=== PATIENT | male | born 1940 | race Caucasian/White ===

== ENCOUNTER 2019-03-03 15:27 | Inpatient (IN) | payer MEDICARE, OTHER ==
[~2019-03-03] VITALS: Ht 175.3 cm; Wt 109.2 kg
[~2019-03-03 15:27] MED LIST: ETOMIDATE 40 MG/20 ML ONE; MIDAZOLAM 1 MG/ML, 5ML ONE; PROPOFOL 10 MG/ML, 100ML IV ONE; SUCCINYLCHOLINE 20 MG/ML, 10ML ONE; VECURONIUM 10 MG ONE
[2019-03-03] MEDS ORDERED: PLEASE ENTER HEIGHT AND WEIGHT MC SCH (16:00)
[2019-03-03] MEDS ORDERED: PLEASE ENTER ALLERGIES MC SCH (16:00)
[2019-03-03] MEDS ORDERED: PIPERACILLIN/TAZO/PMX 3.375GM 50 ML IVPB ONE (16:00)
[2019-03-03] MEDS ORDERED: PIPERACILLIN/TAZO/PMX 3.375GM 50 ML ONE (16:00)
[2019-03-03] MEDS ORDERED: SODIUM CHLORIDE 0.9% 1,000ML IVBOLUS ONE ×3 (16:00→17:00)
[2019-03-03 16:17] LABS: TROPONIN I 0.705 ng/mL (0.000-0.045)
[2019-03-03 16:25] LABS: RAPID INFLUENZA A Negative (Negative); RAPID INFLUENZA B Negative (Negative)
[2019-03-03] MEDS ORDERED: PROPOFOL 100 ML IV PRN ×2 (16:28→18:29)
[2019-03-03] MEDS ORDERED: ETOMIDATE 20 MG/10 ML IV ONE (16:30)
[2019-03-03] MEDS ORDERED: SUCCINYLCHOLINE 20 MG/ML, 10ML IVPush ONE (16:30)
[2019-03-03] MEDS ORDERED: MIDAZOLAM 1 MG/ML, 2ML IVPush ONE ×2 (16:30→19:00)
[2019-03-03] MEDS ORDERED: SODIUM CHLORIDE 0.9% 1,000 ML IV SCH (16:57)
[2019-03-03] MEDS ORDERED: NITROGLYCERIN 0.4 MG/SPRAY SL PRN (17:00)
[2019-03-03] MEDS ORDERED: ONDANSETRON 2MG/ML, 2ML IVPush PRN (17:00)
[2019-03-03] MEDS ORDERED: DEXTROSE 4 GM TAB.CHEW PO PRN (17:00)
[2019-03-03] MEDS ORDERED: NOREPINEPHRINE 4 MG in SODIUM CHLORIDE 0.9% 246 ML IV PRN (17:00)
[2019-03-03] MEDS ORDERED: POLYETHYLENE GLYCOL 17 GM PACKET PO PRN (17:00)
[2019-03-03] MEDS ORDERED: DEXTROSE 50%, 50ML SYRINGE IVPush PRN (17:00)
[2019-03-03] MEDS ORDERED: GLUCAGON 1 MG IM PRN (17:00)
[2019-03-03] MEDS ORDERED: NITROGLYCERIN 0.4 MG BOTTLE (25 TABS) SL PRN (17:00)
[2019-03-03] MEDS ORDERED: ACETAMINOPHEN 325 MG TABLET PO PRN (17:00)
[2019-03-03 17:25] LABS: MEAN CORPUSCULAR HEMOGLOBIN 29.9 pg (27.5-34.5); MEAN CORPUSCULAR HGB CONC 32.6 g/dL (33.2-36.2); MEAN CORPUSCULAR VOLUME 91.5 fL (81-97); MEAN PLATELET VOLUME 8.9 fL (7.4-10.4); PLATELET COUNT 189 x10^3/uL (130-400); RED BLOOD COUNT 4.61 x10^6/uL (4.38-5.82); RED CELL DISTRIBUTION WIDTH 14.3 % (9.4-14.8)
[2019-03-03 17:28] LABS: ALBUMIN 2.8 g/dL (3.4-5.0); ANION GAP 7 mmol/L (5-15); CALCIUM 8.4 mg/dL (8.5-10.1); CHLORIDE 118 mmol/L (98-107)
--- NOTE | 2019-03-03 17:29 | NUR ---
LATE ENTRY 1520, PT ARRIVES VIA [facility]. RPT REC'D FROM FLIGHT RN. PT TRANSFERED TO ED AN[facility] AND DR KENNEDY AT BEDSIDE. RT PLACED PT ON OPTI-FLOW. PT ASSESSMENT AND POC REVIEWED WITH PT. ER MD DISCUSSED POSSIBLE NEED FOR INTUBATION WITH PT. PT VERBALIES UNDERSTNADING. VSS AT THIS TIME ALTHOUGH PT RR 28-34. LABS DRAWN, EKG COMPLETED. PT REQUESTED THIS RN TO CALL HIS DAUGHTER EDGAR AND ALSO GAVE VERBAL CONSENT TO DISCUSS HIS HOSPITAL COURSE WITH EDGAR AND HIS SON KAI.
[2019-03-03] MEDS ORDERED: DOXYCYCLINE 100MG TABLET PO ONE (17:30)
[2019-03-03] MEDS ORDERED: VANCOMYCIN PER PHARMACY MC PRN (17:30)
[2019-03-03] MEDS ORDERED: FUROSEMIDE 20 MG/2 ML IV SCH (17:30)
[2019-03-03] MEDS ORDERED: DIAZEPAM 5 MG TABLET PO SCH (17:30)
[2019-03-03] MEDS ORDERED: PIPERACILLIN/TAZO/PMX 2.25GM 50 ML IV SCH (17:30)
[2019-03-03 17:33] LABS: ALANINE AMINOTRANSFERASE 26 U/L (12-78); ALKALINE PHOSPHATASE 58 U/L (45-117); CREATININE 2.88 mg/dL (0.7-1.3); TOTAL PROTEIN 6.9 g/dL (6.4-8.2)
--- NOTE | 2019-03-03 17:35 | NUR ---
LATE ENTRY 1700, PTS SON KAI PH: [phone] CALLED. SON LIVES IN [place]. SON UPDATED RE: FATHERS INTUBATION AND ASSESSMENT. QUESTIONS ANSWERED.
[2019-03-03 17:45] LABS: INTERNATIONAL NORMALIZED RATIO 1.19 (0.93-1.1); PROTHROMBIN TIME 12.4 Seconds (9.6-11.5)
[2019-03-03] MEDS ORDERED: HYDROmorphone 1 MG/ML, 1ML VIAL ONE (17:49)
[2019-03-03] MEDS ORDERED: MIDAZOLAM 1 MG/ML, 2ML ONE ×2 (17:49→17:51)
[2019-03-03] MEDS ORDERED: SODIUM BICARBONATE 8.4% 150 MEQ in DEXTROSE 5% 1,000 ML IV SCH (18:00)
[2019-03-03 18:07] LABS: HCT (SEDRATE) 41.5 % (39.2-51.8)
[2019-03-03 18:27] LABS: MD YES
[2019-03-03 18:29] LABS: LYMPH#(MANUAL) 1.09 x10^3/uL (1-3.4); LYMPHS% (MANUAL) 4 % (22-44); MONOS#(MANUAL) 1.37 x10^3/uL (0.3-2.7); MONOS% (MANUAL) 5 % (2-9); SEG#(MANUAL) 24.84 x10^3/uL (1.8-6.8); SEGS% (MANUAL) 91 % (42-75)
[2019-03-03 18:30] LABS: ANISOCYTOSIS 1+; POLYCHROMASIA 1+
[2019-03-03] MEDS ORDERED: PHARMACY MAY ADJ FOR RENAL FX MC SCH (18:30)
[2019-03-03] MEDS ORDERED: LIDOCAINE-MPF 1%, 2ML ENDO PRN (18:30)
[2019-03-03] MEDS ORDERED: PHARMACOKINETIC CONSULTATION MC ONE (18:30)
[2019-03-03] MEDS ORDERED: THIAMINE 100 MG in SODIUM CHLORIDE 0.9% 50 ML IV SCH (18:30)
[2019-03-03] MEDS ORDERED: PHARMACOKINETIC MONITORING MC PRN (18:30)
[2019-03-03] MEDS: DIAZEPAM 5 MG/ML, 2ML IV SCH (18:30)
[2019-03-03 18:31] LABS: <PLATELET ESTIMATE> ADEQUATE; <PLT MORPHOLOGY> NORMAL PLT MORPH
--- NOTE | 2019-03-03 18:35 | NUR ---
DAUGHTER EDGAR BUCHANAN [phone]
[2019-03-03] MEDS: FENTANYL PF 100 MCG/2ML IVPush PRN (19:24)
[2019-03-03] MEDS: NOREPINEPHRINE 4 MG in SODIUM CHLORIDE 0.9% 246 ML IV PRN (19:27)
[2019-03-03] MEDS: DOXYCYCLINE 100 MG in DEXTROSE 5% 250 ML IV SCH (19:27)
[2019-03-03] MEDS: VANCOMYCIN 2,000 MG in SODIUM CHLORIDE 0.9% 500 ML IV SCH (19:27)
[2019-03-03] MEDS: SODIUM CHLORIDE FLUSH 10ML SYR IVF SCH (19:33)
[2019-03-03] MEDS: ATORVASTATIN 40 MG TABLET PO SCH (19:44)
[2019-03-03] MEDS ORDERED: VASOPRESSIN 100 UNIT in SODIUM CHLORIDE 0.9% 495 ML IV PRN (20:00)
[2019-03-03] MEDS ORDERED: PHENYLEPHRINE 20 MG in SODIUM CHLORIDE 0.9% 248 ML IV PRN (20:00)
[2019-03-03] MEDS: MIDAZOLAM HCL 25 MG in SODIUM CHLORIDE 0.9% 245 ML IV PRN (20:08)
[2019-03-03] MEDS ORDERED: FENTANYL PF 2,500 MCG in SODIUM CHLORIDE 0.9% 200 ML IV PRN (20:30)
[2019-03-03] MEDS ORDERED: VECURONIUM 50 MG in SODIUM CHLORIDE 0.9% 250 ML IV PRN (20:30)
[2019-03-03 21:04] LABS: CULTURE INDICATED? YES; MICROSCOPIC INDICATED
[2019-03-03] MEDS ORDERED: HEPARIN 5,000 UNITS/ML, 1ML ONE (21:28)
[2019-03-03] MEDS ORDERED: HEPARIN 25,000 UNITS/500ML PMX 500 ML ONE (21:28)
[2019-03-03] MEDS: INSULIN LISPRO 100 UNITS/ML, PEN SQ-INSULIN SCH (21:37)
[2019-03-03] MEDS: HEPARIN 25,000 UNITS/500ML PMX 500 ML IV PRN (21:43)
[2019-03-03] MEDS: PIPERACILLIN/TAZO/PMX 2.25GM 50 ML IV SCH (23:24)
[2019-03-04] MEDS ORDERED: HEPARIN 5,000 UNITS/ML, 1ML IV ONE
[2019-03-04 00:15] VITALS: BP 106/56
[2019-03-04] MEDS: DIAZEPAM 5 MG/ML, 2ML IV SCH ×3 (00:27→18:36)
[2019-03-04] MEDS: MIDAZOLAM HCL 25 MG in SODIUM CHLORIDE 0.9% 245 ML IV PRN ×3 (00:58→23:16)
[2019-03-04] MEDS: SODIUM BICARBONATE 8.4% 150 MEQ in DEXTROSE 5% 1,000 ML IV SCH ×2 (02:07→10:01)
[2019-03-04 04:20] LABS: MEAN CORPUSCULAR HEMOGLOBIN 30.1 pg (27.5-34.5); MEAN CORPUSCULAR HGB CONC 32.7 g/dL (33.2-36.2); MEAN PLATELET VOLUME 8.7 fL (7.4-10.4); PLATELET COUNT 158 x10^3/uL (130-400); RED CELL DISTRIBUTION WIDTH 14.1 % (9.4-14.8)
[2019-03-04 04:34] LABS: ANION GAP 6 mmol/L (5-15); CALCIUM 7.2 mg/dL (8.5-10.1); CHLORIDE 113 mmol/L (98-107); CREATININE 3.33 mg/dL (0.7-1.3)
[2019-03-04 04:37] LABS: CHOL/HDL RATIO 3.8; CHOLESTEROL, TOTAL 129 mg/dL (140-239); HDL CHOL % 26 % (26-37); HDL CHOLESTEROL (DIRECT) 34 mg/dL (40-60); LDL CHOLESTEROL,CALCULATED 71 mg/dL (54-169); LDL/HDL RATIO 2.1 (0.5-3.0); TRIGLYCERIDES 119 mg/dL (50-200); VLDL CHOLESTEROL 24 mg/dL (0-25)
[2019-03-04] MEDS: HEPARIN 5,000 UNITS/ML, 1ML IV PRN ×2 (04:40→18:29)
[2019-03-04 04:56] LABS: BASOPHILS # (AUTO) 0.01 x10^3/uL (0-0.1); BASOPHILS % (AUTO) 0 % (0-1); EOSINOPHILS % (AUTO) 0 % (1-7); LYMPHOCYTES # (AUTO) 0.44 x10^3/uL (1-3.4); LYMPHOCYTES % (AUTO) 2 % (22-44); MD SCAN; MONOCYTES # (AUTO) 0.62 x10^3/uL (0.2-0.8); MONOCYTES % (AUTO) 3 % (2-9); NEUTROPHILS # (AUTO) 23.63 x10^3/uL (1.8-6.8); NEUTROPHILS % (AUTO) 96 % (42-75)
[2019-03-04] MEDS ORDERED: ASPIRIN 325 MG TABLET EC PO SCH (06:00)
[2019-03-04] MEDS: PIPERACILLIN/TAZO/PMX 2.25GM 50 ML IV SCH ×3 (07:42→21:42)
[2019-03-04] MEDS: DOXYCYCLINE 100 MG in DEXTROSE 5% 250 ML IV SCH ×2 (07:42→19:36)
[2019-03-04] MEDS: INSULIN LISPRO 100 UNITS/ML, PEN SQ-INSULIN SCH ×4 (09:02→19:51)
[2019-03-04] MEDS: FAMOTIDINE 20 MG/2 ML IVPush SCH (09:04)
[2019-03-04] MEDS: SENNA/DOCUSATE TABLET PO SCH (09:04)
[2019-03-04] MEDS: SODIUM CHLORIDE FLUSH 10ML SYR IVF SCH ×2 (09:18→19:36)
[2019-03-04] MEDS ORDERED: ASPIRIN 81 MG TABLET CHEW PO ONE (10:00)
--- NOTE | 2019-03-04 11:56 | NUR ---
TF goal recs: Vital HP @ 75 ml/hour on propofol and 80 ml/hour off propofol
[2019-03-04] MEDS ORDERED: SODIUM CHLORIDE 0.9%, 250ML IVBOLUS ONE (12:30)
[2019-03-04] MEDS ORDERED: SODIUM CHLORIDE 0.9% 1,000 ML IV SCH (16:57)
[2019-03-04] MEDS ORDERED: SODIUM BICARBONATE 8.4% 150 MEQ in DEXTROSE 5% 1,000 ML IV SCH (18:00)
[2019-03-04] MEDS: VANCOMYCIN 2,000 MG in SODIUM CHLORIDE 0.9% 500 ML IV SCH (18:35)
[2019-03-04] MEDS: THIAMINE 200 MG in SODIUM CHLORIDE 0.9% 50 ML IV SCH (18:36)
[2019-03-04] MEDS: ATORVASTATIN 40 MG TABLET PO SCH (19:51)
[2019-03-04] MEDS: HEPARIN 25,000 UNITS/500ML PMX 500 ML IV PRN (19:56)
[2019-03-04] MEDS: NOREPINEPHRINE 4 MG in SODIUM CHLORIDE 0.9% 246 ML IV PRN (21:17)
[2019-03-05] MEDS: HEPARIN 5,000 UNITS/ML, 1ML IV PRN (00:59)
[2019-03-05] MEDS: DIAZEPAM 5 MG/ML, 2ML IV SCH (02:30)
[2019-03-05] MEDS: PIPERACILLIN/TAZO/PMX 2.25GM 50 ML IV SCH (04:14)
[2019-03-05] MEDS ORDERED: FILTER 0.22 MICRON IV PRN (04:30)
[2019-03-05] MEDS ORDERED: AMIODARONE 900 MG in DEXTROSE 5% 482 ML IV PRN (04:30)
[2019-03-05] MEDS ORDERED: AMIODARONE 150 MG in DEXTROSE 5% 100 ML IV ONE (04:30)
[2019-03-05 04:40] LABS: BASOPHILS # (AUTO) 0.01 x10^3/uL (0-0.1); BASOPHILS % (AUTO) 0 % (0-1); EOSINOPHILS # (AUTO) 0.02 x10^3/uL (0-0.4); EOSINOPHILS % (AUTO) 0 % (1-7); LYMPHOCYTES # (AUTO) 0.58 x10^3/uL (1-3.4); LYMPHOCYTES % (AUTO) 5 % (22-44); MD NO; MEAN CORPUSCULAR HEMOGLOBIN 30.1 pg (27.5-34.5); MEAN CORPUSCULAR VOLUME 91.2 fL (81-97); MEAN PLATELET VOLUME 9.1 fL (7.4-10.4); MONOCYTES # (AUTO) 0.55 x10^3/uL (0.2-0.8); MONOCYTES % (AUTO) 4 % (2-9); NEUTROPHILS % (AUTO) 91 % (42-75); PLATELET COUNT 134 x10^3/uL (130-400); RED BLOOD COUNT 3.94 x10^6/uL (4.38-5.82); RED CELL DISTRIBUTION WIDTH 14.4 % (9.4-14.8)
[2019-03-05] MEDS: FENTANYL PF 100 MCG/2ML IVPush PRN ×2 (04:52→12:14)
[2019-03-05] MEDS: INSULIN LISPRO 100 UNITS/ML, PEN SQ-INSULIN SCH ×3 (07:00→21:26)
[2019-03-05 07:28] LABS: ALBUMIN 2.2 g/dL (3.4-5.0); ANION GAP 7 mmol/L (5-15); CALCIUM 7.1 mg/dL (8.5-10.1); CHLORIDE 111 mmol/L (98-107)
[2019-03-05 07:31] LABS: CREATININE 2.69 mg/dL (0.7-1.3)
[2019-03-05 07:32] LABS: ALANINE AMINOTRANSFERASE 70 U/L (12-78); ALKALINE PHOSPHATASE 48 U/L (45-117); TOTAL PROTEIN 5.7 g/dL (6.4-8.2)
[2019-03-05] MEDS: SODIUM CHLORIDE FLUSH 10ML SYR IVF SCH ×2 (08:23→21:19)
[2019-03-05] MEDS: AMPICILLIN/SULBACTAM 1,500 MG in SODIUM CHLORIDE 0.9% 50 ML IV SCH ×2 (08:23→13:22)
[2019-03-05] MEDS ORDERED: ASPIRIN 325 MG TABLET ONE (09:00)
[2019-03-05] MEDS ORDERED: ASPIRIN 81 MG TABLET CHEW PO ONE (09:00)
[2019-03-05] MEDS: FAMOTIDINE 20 MG/2 ML IVPush SCH (09:01)
[2019-03-05] MEDS: SENNA/DOCUSATE TABLET PO SCH (09:02)
[2019-03-05] MEDS: AMIODARONE 200 MG TABLET PO SCH ×2 (09:02→21:20)
[2019-03-05] MEDS: ASPIRIN 81 MG TABLET CHEW PO SCH (10:11)
[2019-03-05] MEDS: MIDAZOLAM HCL 25 MG in SODIUM CHLORIDE 0.9% 245 ML IV PRN ×3 (10:58→21:20)
[2019-03-05] MEDS: HEPARIN 25,000 UNITS/500ML PMX 500 ML IV PRN (14:39)
[2019-03-05] MEDS: THIAMINE 200 MG in SODIUM CHLORIDE 0.9% 50 ML IV SCH (18:22)
[2019-03-05] MEDS: ATORVASTATIN 40 MG TABLET PO SCH (21:20)
[2019-03-06] MEDS ORDERED: ROCURONIUM 10MG/ML,5ML IVPush ONE (01:00)
[2019-03-06] MEDS ORDERED: ETOMIDATE 20 MG/10 ML IVPush ONE (01:00)
[2019-03-06] MEDS: AMPICILLIN/SULBACTAM 1,500 MG in SODIUM CHLORIDE 0.9% 50 ML IV SCH ×2 (01:26→12:49)
[2019-03-06] MEDS: MIDAZOLAM HCL 25 MG in SODIUM CHLORIDE 0.9% 245 ML IV PRN ×3 (02:12→13:24)
[2019-03-06] MEDS: INSULIN LISPRO 100 UNITS/ML, PEN SQ-INSULIN SCH ×4 (03:00→21:00)
[2019-03-06 05:17] LABS: BASOPHILS # (AUTO) 0.05 x10^3/uL (0-0.1); BASOPHILS % (AUTO) 0 % (0-1); EOSINOPHILS # (AUTO) 0.03 x10^3/uL (0-0.4); EOSINOPHILS % (AUTO) 0 % (1-7); LYMPHOCYTES # (AUTO) 0.62 x10^3/uL (1-3.4); LYMPHOCYTES % (AUTO) 5 % (22-44); MD NO; MEAN CORPUSCULAR HEMOGLOBIN 30.1 pg (27.5-34.5); MEAN CORPUSCULAR VOLUME 91.4 fL (81-97); MEAN PLATELET VOLUME 9.1 fL (7.4-10.4); MONOCYTES # (AUTO) 0.76 x10^3/uL (0.2-0.8); MONOCYTES % (AUTO) 6 % (2-9); NEUTROPHILS # (AUTO) 11.38 x10^3/uL (1.8-6.8); NEUTROPHILS % (AUTO) 89 % (42-75); PLATELET COUNT 154 x10^3/uL (130-400)
[2019-03-06 05:39] LABS: VANCOMYCIN,RANDOM 15.9 mcg/mL
[2019-03-06 06:47] LABS: ALANINE AMINOTRANSFERASE 118 U/L (12-78); ANION GAP 7 mmol/L (5-15); CALCIUM 7.2 mg/dL (8.5-10.1); CHLORIDE 111 mmol/L (98-107); CREATININE 2.32 mg/dL (0.7-1.3)
[2019-03-06 06:49] LABS: ALKALINE PHOSPHATASE 53 U/L (45-117); BILIRUBIN,TOTAL 0.7 mg/dL (0.2-1.0); TOTAL PROTEIN 5.7 g/dL (6.4-8.2)
[2019-03-06] MEDS: HEPARIN 5,000 UNITS/ML, 1ML IV PRN ×4 (08:02→22:53)
[2019-03-06] MEDS ORDERED: VANCOMYCIN 2,000 MG in SODIUM CHLORIDE 0.9% 500 ML IV ONE (09:00)
[2019-03-06] MEDS: SENNA/DOCUSATE TABLET PO SCH (09:07)
[2019-03-06] MEDS: POTASSIUM CHLORIDE 10 MEQ TABLET.ER PO SCH ×2 (09:07→17:48)
[2019-03-06] MEDS: SODIUM CHLORIDE FLUSH 10ML SYR IVF SCH ×2 (09:08→21:00)
[2019-03-06] MEDS: ASPIRIN 81 MG TABLET CHEW PO SCH (09:08)
[2019-03-06] MEDS: AMIODARONE 200 MG TABLET PO SCH ×2 (09:08→20:59)
[2019-03-06] MEDS: FAMOTIDINE 20 MG/2 ML IVPush SCH (09:09)
[2019-03-06] MEDS: HEPARIN 25,000 UNITS/500ML PMX 500 ML IV PRN (09:45)
[2019-03-06] MEDS ORDERED: ROCURONIUM 10MG/ML,5ML ONE (10:38)
[2019-03-06] MEDS ORDERED: ETOMIDATE 40 MG/20 ML ONE (10:38)
[2019-03-06] MEDS ORDERED: FUROSEMIDE 40 MG/4 ML ONE (14:25)
[2019-03-06] MEDS ORDERED: FUROSEMIDE 40 MG/4 ML IV ONE (14:30)
[2019-03-06 15:39] LABS: CHLORIDE 111 mmol/L (98-107)
[2019-03-06 15:47] LABS: ANION GAP 7 mmol/L (5-15); CREATININE 2.03 mg/dL (0.7-1.3)
[2019-03-06] MEDS: THIAMINE 200 MG in SODIUM CHLORIDE 0.9% 50 ML IV SCH (17:57)
[2019-03-06] MEDS ORDERED: MIDAZOLAM HCL 50 MG in SODIUM CHLORIDE 0.9% 240 ML IV PRN (18:00)
[2019-03-06] MEDS: ATORVASTATIN 40 MG TABLET PO SCH (20:59)
[2019-03-06] MEDS: FUROSEMIDE 40 MG/4 ML IV SCH (21:00)
[2019-03-07] MEDS: AMPICILLIN/SULBACTAM 1,500 MG in SODIUM CHLORIDE 0.9% 50 ML IV SCH ×3 (01:04→20:06)
[2019-03-07] MEDS: HEPARIN 25,000 UNITS/500ML PMX 500 ML IV PRN ×2 (02:14→16:37)
[2019-03-07] MEDS: INSULIN LISPRO 100 UNITS/ML, PEN SQ-INSULIN SCH ×4 (03:32→21:00)
[2019-03-07 05:41] LABS: BASOPHILS % (AUTO) 0 % (0-1); EOSINOPHILS # (AUTO) 0.06 x10^3/uL (0-0.4); EOSINOPHILS % (AUTO) 1 % (1-7); LYMPHOCYTES # (AUTO) 0.33 x10^3/uL (1-3.4); LYMPHOCYTES % (AUTO) 4 % (22-44); MD NO; MEAN CORPUSCULAR HEMOGLOBIN 30.1 pg (27.5-34.5); MEAN CORPUSCULAR HGB CONC 33.2 g/dL (33.2-36.2); MEAN CORPUSCULAR VOLUME 90.9 fL (81-97); MEAN PLATELET VOLUME 9.2 fL (7.4-10.4); MONOCYTES # (AUTO) 0.57 x10^3/uL (0.2-0.8); MONOCYTES % (AUTO) 6 % (2-9); NEUTROPHILS # (AUTO) 8.09 x10^3/uL (1.8-6.8); NEUTROPHILS % (AUTO) 89 % (42-75); PLATELET COUNT 124 x10^3/uL (130-400); RED BLOOD COUNT 3.04 x10^6/uL (4.38-5.82); RED CELL DISTRIBUTION WIDTH 13.9 % (9.4-14.8)
[2019-03-07 07:33] LABS: ANION GAP 5 mmol/L (5-15); CHLORIDE 111 mmol/L (98-107); CREATININE 2.14 mg/dL (0.7-1.3)
[2019-03-07] MEDS: FUROSEMIDE 40 MG/4 ML IV SCH ×2 (07:48→15:25)
[2019-03-07] MEDS: POTASSIUM CHLORIDE 10 MEQ TABLET.ER PO SCH (07:48)
[2019-03-07] MEDS ORDERED: POTASSIUM CHLORIDE 10 MEQ TABLET.ER PO SCH (08:00)
[2019-03-07] MEDS: SENNA/DOCUSATE TABLET PO SCH (09:00)
[2019-03-07] MEDS: FAMOTIDINE 20 MG/2 ML IVPush SCH (10:14)
[2019-03-07] MEDS: AMIODARONE 200 MG TABLET PO SCH ×2 (10:14→22:12)
[2019-03-07] MEDS: ASPIRIN 81 MG TABLET CHEW PO SCH (10:14)
[2019-03-07] MEDS: SODIUM CHLORIDE FLUSH 10ML SYR IVF SCH ×2 (10:15→22:13)
[2019-03-07] MEDS ORDERED: DOPAMINE/D5W PMX 250 ML ONE (12:13)
[2019-03-07] MEDS ORDERED: DOPAMINE/D5W PMX 250 ML IV PRN (12:30)
[2019-03-07] MEDS: HEPARIN 5,000 UNITS/ML, 1ML IV PRN (13:26)
[2019-03-07] MEDS ORDERED: POTASSIUM CHLORIDE 20 MEQ TAB.ER.PRT PO SCH (17:00)
[2019-03-07] MEDS: THIAMINE 200 MG in SODIUM CHLORIDE 0.9% 50 ML IV SCH (17:32)
[2019-03-07 18:47] LABS: ALANINE AMINOTRANSFERASE 96 U/L (12-78); ALBUMIN 1.8 g/dL (3.4-5.0)
[2019-03-07 18:49] LABS: ALKALINE PHOSPHATASE 56 U/L (45-117); BILIRUBIN,TOTAL 0.6 mg/dL (0.2-1.0); TOTAL PROTEIN 5.4 g/dL (6.4-8.2)
[2019-03-07] MEDS: ATORVASTATIN 40 MG TABLET PO SCH (22:11)
[2019-03-08] MEDS: FUROSEMIDE 40 MG/4 ML IV SCH (00:09)
[2019-03-08] MEDS: AMPICILLIN/SULBACTAM 1,500 MG in SODIUM CHLORIDE 0.9% 50 ML IV SCH ×2 (02:39→10:47)
[2019-03-08] MEDS: INSULIN LISPRO 100 UNITS/ML, PEN SQ-INSULIN SCH ×2 (03:03→09:07)
[2019-03-08] MEDS ORDERED: DOPAMINE/D5W PMX 250 ML ONE (04:30)
[2019-03-08] MEDS: HEPARIN 25,000 UNITS/500ML PMX 500 ML IV PRN (05:33)
[2019-03-08 06:21] LABS: MEAN CORPUSCULAR HEMOGLOBIN 29.3 pg (27.5-34.5); MEAN CORPUSCULAR HGB CONC 32.9 g/dL (33.2-36.2); MEAN CORPUSCULAR VOLUME 89.3 fL (81-97); MEAN PLATELET VOLUME 9.2 fL (7.4-10.4); PLATELET COUNT 157 x10^3/uL (130-400); RED BLOOD COUNT 3.32 x10^6/uL (4.38-5.82); RED CELL DISTRIBUTION WIDTH 13.7 % (9.4-14.8)
[2019-03-08 06:29] LABS: CHLORIDE 107 mmol/L (98-107)
[2019-03-08 06:40] LABS: ALANINE AMINOTRANSFERASE 105 U/L (12-78); ALBUMIN 2.1 g/dL (3.4-5.0); ALKALINE PHOSPHATASE 70 U/L (45-117); ANION GAP 8 mmol/L (5-15); BILIRUBIN,TOTAL 0.8 mg/dL (0.2-1.0); CALCIUM 7.4 mg/dL (8.5-10.1); TOTAL PROTEIN 6.2 g/dL (6.4-8.2)
[2019-03-08] MEDS: HEPARIN 5,000 UNITS/ML, 1ML IV PRN (06:43)
[2019-03-08 07:12] LABS: BASOPHILS % (AUTO) 0 % (0-1); EOSINOPHILS % (AUTO) 1 % (1-7); LYMPHOCYTES # (AUTO) 0.31 x10^3/uL (1-3.4); LYMPHOCYTES % (AUTO) 3 % (22-44); MD SCAN; MONOCYTES # (AUTO) 0.08 x10^3/uL (0.2-0.8); MONOCYTES % (AUTO) 1 % (2-9); NEUTROPHILS # (AUTO) 9.61 x10^3/uL (1.8-6.8); NEUTROPHILS % (AUTO) 95 % (42-75)
[2019-03-08] MEDS ORDERED: POTASSIUM CHLORIDE PMX 100 ML IV ONE (08:30)
[2019-03-08] MEDS ORDERED: KSCALE TO 4.0 IV SCH (08:30)
[2019-03-08] MEDS: FAMOTIDINE 20 MG/2 ML IVPush SCH (08:47)
[2019-03-08] MEDS: SENNA/DOCUSATE TABLET PO SCH (08:48)
[2019-03-08] MEDS: AMIODARONE 200 MG TABLET PO SCH (08:48)
[2019-03-08] MEDS: ASPIRIN 81 MG TABLET CHEW PO SCH (08:48)
[2019-03-08] MEDS: SODIUM CHLORIDE FLUSH 10ML SYR IVF SCH (08:48)
[2019-03-08] MEDS ORDERED: POTASSIUM CHLORIDE 20 MEQ TAB.ER.PRT PO SCH (09:00)
[2019-03-08] MEDS ORDERED: POTASSIUM CHLORIDE 10% 40 MEQ/30 ML UDC PO SCH (09:00)
[2019-03-08] MEDS ORDERED: FUROSEMIDE 40 MG/4 ML IV SCH (12:00)
[2019-03-08] MEDS ORDERED: DOPAMINE/D5W PMX 250 ML IV PRN (12:30)
[2019-03-08] MEDS: FENTANYL PF 100 MCG/2ML IVPush PRN (14:44)
[2019-03-08] MEDS ORDERED: MIDAZOLAM 1 MG/ML, 5ML ONE (14:51)
[2019-03-08] MEDS ORDERED: LORazepam 2 MG/ML, 1ML IV ONE (15:00)
[2019-03-08] MEDS ORDERED: LORazepam 2 MG/ML, 1ML IV PRN (15:00)
[2019-03-08] MEDS ORDERED: morphine SULFATE 10 MG/ML, 1ML IV ONE (15:00)
[2019-03-08] MEDS ORDERED: morphine SULFATE 10 MG/ML, 1ML IV PRN (15:00)
[2019-03-08] MEDS ORDERED: ATROPINE OPHTH SOLN 1%, 2ML PO PRN (15:00)
[2019-03-08] MEDS ORDERED: MIDAZOLAM 1 MG/ML, 2ML IVPush ONE (16:30)
[2019-03-09] MEDS ORDERED: POTASSIUM CHLORIDE 10% 40 MEQ/30 ML UDC PO SCH (09:00)
[2019-03-09] MEDS ORDERED: POTASSIUM CHLORIDE 20 MEQ TAB.ER.PRT PO SCH (09:00)
== END 2019-03-08 18:40 | disposition expired | DRG 870 ==
LOC: ED 16:56 → EDIP 16:57 → ED 17:20 → CCU 18:14
PROVIDERS: ADMIT Hospitalist; ATTEND Internal Medicine
PROC: 5A1955Z Respiratory Ventilation, Greater than 96 Consecutive Hours (ICD-10-PCS; principal; 2019-03-03)
PROC: 0BH17EZ Insertion of Endotracheal Airway into Trachea, Via Natural or Artificial Opening (ICD-10-PCS; 2019-03-03)
PROC: 0T9B70Z Drainage of Bladder with Drainage Device, Via Natural or Artificial Opening (ICD-10-PCS; 2019-03-03)
PROC: 0B9J8ZX Drainage of Left Lower Lung Lobe, Via Natural or Artificial Opening Endoscopic, Diagnostic (ICD-10-PCS; 2019-03-03)
PROC: 0B9F8ZX Drainage of Right Lower Lung Lobe, Via Natural or Artificial Opening Endoscopic, Diagnostic (ICD-10-PCS; 2019-03-03)
PROC: 02HV33Z Insertion of Infusion Device into Superior Vena Cava, Percutaneous Approach (ICD-10-PCS; 2019-03-03)
PROC: B5181ZA Fluoroscopy of Superior Vena Cava using Low Osmolar Contrast, Guidance (ICD-10-PCS; 2019-03-03)
PROC: 0B9J8ZZ Drainage of Left Lower Lung Lobe, Via Natural or Artificial Opening Endoscopic (ICD-10-PCS; 2019-03-04)
PROC: 0B9F8ZZ Drainage of Right Lower Lung Lobe, Via Natural or Artificial Opening Endoscopic (ICD-10-PCS; 2019-03-04)
DX: A41.9 Sepsis, unspecified organism (principal); J96.01 Acute respiratory failure with hypoxia; I21.4 Non-ST elevation (NSTEMI) myocardial infarction; G93.41 Metabolic encephalopathy; J15.9 Unspecified bacterial pneumonia; N17.0 Acute kidney failure with tubular necrosis; R65.21 Severe sepsis with septic shock; N18.4 Chronic kidney disease, stage 4 (severe); Z99.11 Dependence on respirator [ventilator] status; E66.9 Obesity, unspecified; Z68.35 Body mass index [BMI] 35.0-35.9, adult; E87.5 Hyperkalemia; F10.10 Alcohol abuse, uncomplicated; Y90.9 Presence of alcohol in blood, level not specified; I34.0 Nonrheumatic mitral (valve) insufficiency; I48.91 Unspecified atrial fibrillation; I50.9 Heart failure, unspecified; I73.9 Peripheral vascular disease, unspecified; I77.1 Stricture of artery; K80.20 Calculus of gallbladder without cholecystitis without obstruction; N28.1 Cyst of kidney, acquired; T88.4XXA Failed or difficult intubation, initial encounter; Z96.642 Presence of left artificial hip joint; Z87.891 Personal history of nicotine dependence; Z51.5 Encounter for palliative care
CPT/HCPCS: 31500; 31624; 36415; 36556; 36600; 51702; 71045; 76700; 80048; 80053; 80061; 80202; 81001; 82436; 82533; 82570; 82803; 82962; 83036; 83605; 83615; 83735; 83880; 84100; 84133; 84300; 84439; 84443; 84478; 84484; 85025; 85520; 85610; 85651; 87040; 87070; 87081; 87086; 87205; 87400; 87491; 87591; 93005; 93306; 93312; 93325; 93926; 94002; 94003; 96361; 96374; G0378; J1265; J1644; J1940; J2250; J2543; J2704; J3010; J3360; J3370; J3411; J7060; J7070; J0282; J0295; J0330; J1815; J3490; J7030; J7040; J7050